=== PATIENT | male | born 1985 | race American Indian/Alaskan Native ===

== ENCOUNTER 2021-08-04 04:32 | Emergency (ER) | payer SELFPAY ==
[2021-08-04] MEDS ORDERED: IBUPROFEN 800 MG TAB PO ONE (06:30)
--- NOTE | 2021-08-04 06:33 | Emergency Department Report ---
Upper Extremity - HPI Chief Complaint: Shoulder Injury Stated Complaint: SEVERE PAIN IN UPPER LEFT BACK Time Seen by Provider: 08/04/21 06:22 Other History: Patient presents with pain in the left trapezius and scapular area. This was nontraumatic. He woke up about 2 AM with the pain. It is described as a throbbing and burning pain. He has some burning and tingling in the left neck and back area. Again, there is no trauma. He has no fevers or chills per there is no cough congestion. He states that he feels better when he is laying flat and his left arm is elevated. Patient has no numbness or tingling in the arm itself. He has no chest pain or shortness of breath. Pain is not pleuritic or exertional. ED Review of Systems ROS: Stated complaint: SEVERE PAIN IN UPPER LEFT BACK Other details as noted in HPI Comment: All other systems reviewed and negative Constitutional: denies: fever Eyes: denies: eye pain ENT: denies: throat pain Respiratory: denies: cough Cardiovascular: denies: chest pain Endocrine: denies: unexplained weight loss Gastrointestinal: denies: abdominal pain Genitourinary: denies: dysuria Musculoskeletal: as per HPI Skin: denies: rash Neurological: denies: numbness Hematological/Lymphatic: denies: easy bruising ED Past Medical Hx - Past Medical History Previous Medical History?: No - Surgical History Past Surgical History?: No - Family History Family history: no significant - Social History Smoking Status: Never Smoker Substance Use Type: Alcohol - Medications Home Medications: Home Medications Medication Instructions Recorded Confirmed Last Taken Type Ibuprofen [Motrin] 600 mg PO Q8H PRN #30 tablet 08/04/21 Unknown Rx Lidocaine [Lidoderm] 1 each TP DAILY #30 patch 08/04/21 Unknown Rx Upper Extremity Exam - Exam General: Vital signs noted. No distress. Alert and acting appropriately. Head and Torso: Yes Back Tenderness (There is tenderness with palpation over the left trapezius area and left suprascapular area), No HEENT Abnormality, No Neck Tenderness (No midline tenderness or step-off), No Chest/Lungs Abnormality (Clear bilaterally. Regular rate and rhythm) Shoulder Exam: Yes Shoulder Tenderness (Left trapezius and left suprascapular area), No Clavicle Tenderness, No Normal Range of Motion in Shoulder (Limited due to pain), No Shoulder Deformity, No AC Joint Tenderness Arm Exam: No Arm/Humerus Tenderness, No Arm Deformity Elbow: Yes Normal Range of Motion in Elbow, No Elbow Tenderness, No Elbow Deformity Forearm: No Forearm Tenderness Wrist: Yes Normal ROM in Wrist, No Wrist Tenderness Hand: No Hand Tenderness CMS Exam: Yes Normal Distal Pulses, Yes Normal Capillary Refill, Yes Normal Distal Sensation, No Broken Skin ED Course Vital Signs 08/04/21 05:06 Temperature 98.2 F Pulse Rate 84 Respiratory 18 Rate Blood Pressure 135/97 O2 Sat by Pulse 98 Oximetry - Reevaluation(s) Reevaluation #1: 08/04/21 06:33 XR ordered. Reevaluation #2: 08/04/21 07:09 Radiographs are noted and the patient was discharged. ED Medical Decision Making - Radiology Data Radiology results: report reviewed - Medical Decision Making Patient presents with nonspecific traumatic left shoulder pain. He had reported some paresthesias in the left back area, but there is no history of trauma that would suggest cord injury or fracture. He certainly does not have saddle an esthesia that would suggest cauda equina. He could have a cervical radiculopathy but he does not require emergent MRI. There is no myelopathy. He has no weakness. He does not have any vascular deficit noted. Capillary fill is brisk. Pulses are equal. Skin is warm. He can follow-up with outpatient evaluation with symptomatic measures. Critical Care Time: No Critical care attestation.: If time is entered above; I have spent that time in minutes in the direct care of this critically ill patient, excluding procedure time. ED Disposition Clinical Impression: Left shoulder pain Qualifiers: Chronicity: acute Qualified Code(s): M25.512 - Pain in left shoulder Disposition: HOME / SELF CARE / HOMELESS Is pt being admited?: No Condition: Stable Instructions: Shoulder Pain, How to Use Cold Therapy, [id number] Additional Instructions: Limit lifting. Apply ice. Return for problems. Follow-up with orthopedics and the primary care physician. Return for problems. Prescriptions: Lidocaine [Lidoderm] 1 each TP DAILY #30 patch Ibuprofen [Motrin] 600 mg PO Q8H PRN #30 tablet PRN Reason: Pain Referrals: MARY PATTERSON MD [Referring] - 3-5 Days EUNICE APONTE MD [Staff Physician] - 3-5 Days LARISSA SEWELL MD [Staff Physician] - 3-5 Days
--- NOTE | 2021-08-04 07:03 | XRay Report ---
LEFT SHOULDER 3 VIEWS INDICATION / CLINICAL INFORMATION: Left shoulder pain. COMPARISON: None available. FINDINGS: BONES / JOINT(S): There are mild degenerative changes involving the glenohumeral joint inferiorly. Th ere is no evidence of fracture, subluxation or destructive lesion. SOFT TISSUES: No significant abnormality. ADDITIONAL FINDINGS: The visualized left lung is clear. Signer Name: Michael Antony MD Signed: 08/04/2021 6:58 AM Workstation Name: [id number]
[2021-08-04 08:22] VITALS: BP 148/97
== END 2021-08-04 07:44 | disposition home or self-care (01) ==
LOC: ED 04:32
DX: M25.512 Pain in left shoulder (principal)
CPT/HCPCS: 99283